=== PATIENT | female | born 1990 | race Caucasian/White ===

== ENCOUNTER 2017-11-01 03:03 | Emergency (ER) | payer SELFPAY ==
[~2017-11-01] VITALS: Ht 167.6 cm; Wt 91.0 kg
[~2017-11-01 03:03] MED LIST: CEPH500C3 PO; PRENTAB72 PO
[2017-11-01 03:05] VITALS: BP 127/67; PULSE 84; RESP 18; TEMP 97.8; O2SAT 98
[2017-11-01] MEDS ORDERED: ADDE10 PO (03:22)
[2017-11-01] MEDS ORDERED: LAMO25TA PO (03:22)
[2017-11-01] MEDS ORDERED: ADDE20 PO (03:22)
[2017-11-01] MEDS ORDERED: CORTI10A LEFT EAR (04:43)
--- NOTE | 2017-11-01 04:47 | PD ---
HPI Chief Complaint: ENT Complaint Time Seen by Provider: 04:35 Travel History International Travel<30 days: No Contact w/Intl Traveler<30days: No Traveled to known affect area: No History of Present Illness HPI 27-year-old white female presents to emergency Department with complaints of left ear itching and discomfort. She states that this is been going on for the past 3 days. She has been putting things in her ears and attempts to relieve her discomfort. She also states now she is developed some cold symptoms which consist of runny nose, congestion, cough and slight sore throat. She denies any fever or chills. No hearing loss. Symptoms are mild to moderate. PFSH Past Medical History Narrative Medical ADHD, bipolar ADHD: Yes Bipolar Disorder: Yes Depression: Yes ([employer]NA[employer] DEPRESSION DISORDER) Diminished Hearing: No Immunizations Current: Yes Tetanus Vaccination: < 5 Years Influenza Vaccination: No ?: Not LMP: 10/13/2017 : 2 Para: 0 Miscarriage: 2 Ectopic : Yes Past Surgical History Abdominal Surgery: Yes (right falopian tube burst sx to reapair) Social History Alcohol Use: No Tobacco Use: Yes Substance Use: No Allergies-Medications (Allergen,Severity, Reaction): Coded Allergies: shellfish derived (Unverified Allergy, Severe, THROAT SWELLS UP, ANAPHALAXIS, 11/01/17) Reported Meds & Prescriptions Reported Meds & Active Scripts Active Hpfdojhb-Njjycepya-LV Otic Drops (Neomycin/Polymyxin/Hydrocortisone) 1 % Soln 4 Drop LEFT EAR QID Reported Adderall (Amphetamine-Dextroamphetamine) 20 Mg Tab 20 Mg PO AM Avoid late evening doses. Space doses at least 4 to 6 hours if more than once/day dosing. Adderall (Amphetamine-Dextroamphetamine) 10 Mg Tab 10 Mg PO DAILY Avoid late evening doses. Space doses at least 4 to 6 hours if more than once/day dosing. Lamotrigine 25 Mg Tab 25 Mg PO DAILY Review of Systems General / Constitutional: No: Fever Eyes: No: Visual changes HENT: Positive: Sore Throat, Rhinorrhea, Congestion, Earache, No: Headaches, Ear Discharge Cardiovascular: No: Chest Pain or Discomfort Respiratory: Positive: Cough, No: Shortness of Breath Gastrointestinal: No: Abdominal Pain Genitourinary: No: Dysuria Musculoskeletal: No: Pain Skin: No Rash Neurologic: No: Weakness Psychiatric: No: Depression Endocrine: No: Polydipsia Hematologic/Lymphatic: No: Easy Bruising Physical Exam Narrative GENERAL: Well-developed, well-nourished in no acute distress. Nontoxic appearing. HEAD: Normocephalic, atraumatic. EYES: Pupils equal round and reactive. Extraocular motions intact. No scleral icterus. No injection or drainage. ENT: TMs clear without erythema. The the right external auditory canals clear. The left external auditory canals is mild edema. There is an abrasion at the 5:00 hour. Patient has tenderness in the tragus. Nose: clear . Posterior pharynx is pink and moist. No tonsillar edema or exudate. Uvula midline. Airway patent. NECK: Trachea midline.Supple, nontender, moves head freely. No central bony tenderness or spasm. CARDIOVASCULAR: Regular rate and rhythm without murmurs, gallops, or rubs. RESPIRATORY: Clear to auscultation. Breath sounds equal bilaterally. No wheezes , rales, or rhonchi. GASTROINTESTINAL: Abdomen soft, non-tender, nondistended. No hepato-splenomegaly , or palpable masses. No guarding. EXTREMITIES: No clubbing, cyanosis, or edema. No joint tenderness, effusion, or edema noted. BACK: Nontender without deformity or crepitance. No flank tenderness. Data Data Last Documented VS Vital Signs Date Time Temp Pulse Resp B/P (MAP) Pulse Ox O2 Delivery O2 Flow Rate FiO2 11/01/17 03:05 97.8 84 18 127/67 (87) 98 MDM Medical Decision Making Medical Screen Exam Complete: Yes Emergency Medical Condition: Yes Medical Record Reviewed: Yes Differential Diagnosis Differential diagnoses: Otitis media, otitis externa, mastoiditis, URI Narrative Course Patient has URI symptoms. She has caused some local trauma to her left ear canal. She'll be given Cortisporin. Diagnosis Primary Impression: URI Additional Impression: left otitis externa Patient Instructions: General Instructions Additional Instructions: Rest. Increase fluids. Tylenol and Advil. Robitussin-DM. Cortisporin otic drops Followup with your DrEli in one week. Return to the ER for any problems. Med/Other Pt SpecificInfo: Prescription(s) given Scripts Ophenvrh-Mqdsljala-IK Otic Drops (Fummfqvx-Vhazphqul-EJ Otic Drops) 1 % Soln 4 DROP LEFT EAR QID for Infection, #1 BOTTLE 0 Refills Prov: Mitchell Johnston MD 11/01/17 Disposition: 01 DISCHARGE HOME Condition: Stable Salomon De Jesus Nov 01, 2017 04:47
== END 2017-11-01 04:56 | disposition home or self-care (01) ==
LOC: NEPD 03:03
DX: J06.9 Acute upper respiratory infection, unspecified (principal); H60.92 Unspecified otitis externa, left ear; F90.9 Attention-deficit hyperactivity disorder, unspecified type; F31.9 Bipolar disorder, unspecified; Z72.0 Tobacco use
CPT/HCPCS: 99283